=== PATIENT | male | born 1970 | race Caucasian/White ===

== ENCOUNTER 2017-12-25 09:09 | Emergency (ER) | payer BC, SELFPAY ==
[2017-12-25 09:48] LABS: UTC Influenza A Antigen Negative (Negative); UTC Influenza B Antigen Negative (Negative)
[2017-12-25 09:49] VITALS: BP 132/89; PULSE 74; RESP 17; TEMP 36.8; O2SAT 98; BMI 23.2
--- NOTE | 2017-12-25 09:55 | HMH.EDUTC ---
[facility] [place] Clinical Impression: Influenza-like illness, Exposure to influenza Disposition: Home, Self-Care Condition on Discharge: Good Instructions: DI for Influenza -- Adult Additional Instructions: * Start Tamiflu today if you are going to take it. Discussed risks, side effects, risk of allergic reaction, and possible benefits. We even discussed hallucinations and uncontrollable fevers. Still wants tamiflu. Encouraged to monitor closely. * Lots of rest * Increase fluids, water, gatorade, powerade, pedialyte if /toddler/child * Monitor Temp. Tylenol every 4 hours as needed no more then 5 times a day or 4000mg in 24 hours and/or ibuprofen every 6 hours as needed no more then 3200mg in 24 hours (as long as your primary care doctor has told you that it is ok to take both) for fever/aches/pain. ER if fever no less than 101 despite tylenol and Ibuprofen * OTC cold/flu/sinus medication is ok but pick one. Do not take multiple different ones as they have similar ingredients and you can overdose on cold medication. * You (or your child) are contagious until no fever, aches, chills x 24 hours without medication for symptoms. IMMEDIATELY for new or worsening symptoms, improvement followed by suddenly feeling worse OR no noticeable improvement over the next 48-72 hours. 911 for difficulty breathing Prescriptions: Oseltamivir Phosphate [Tamiflu 75mg Capsule] 75 mg PO BID #10 cap Forms: Work/School Release Time of Disposition: 09:58 Medical Decision Making Vital Signs: 12/25/17 09:49 Temperature 98.2 F Temperature Source Temporal Artery Scan Pulse Rate [Right Radial] 74 Respiratory Rate 17 Blood Pressure [Right Arm] 132/89 Blood Pressure Mean [Right Arm] 103 Blood Pressure Source [Right Arm] Automatic Cuff Blood Pressure Position [Right Arm] Sitting 02 Sat by Pulse Oximetry 98 Oxygen Delivery Method Room Air - Lab Data Lab results reviewed: Yes: I reviewed the patient's lab results. Lab Results 12/25/17 09:45: Influenza Type A Ag Negative, Influenza Type B Ag Negative - Greg Inquiry Pt receiving controlled substance: No [facility] [place] - General Stated complaint: flu like symptoms Time Seen by Provider: 12/25/17 09:21 Mode of Arrival: Family Vehicle Source of Information: Patient Limitations: No Limitations Description of Symptoms (Recalled from Triage Doc. by RN): flu like symptoms. HEENT Symptoms (Recalled from RN notes): Yes Resp Symptoms (Recalled from RN notes): Yes (flu symptoms) Skin Symptoms (Recalled from RN notes): No MS Symptoms (Recalled from RN notes): No Functional Status (Recalled from RN notes): na - History of Present Illness Provider Complaint: c/o I started feeling bad yesterday and I just have to know if this is the flu. I have been exposed multiple times at work. Body aches, chills, chest congestion. Started mild yesterday and progressed throughout the day. Sudafed this morning but right before arrival so not sure if it has helped. no fever. - Related Data Home Medications Medication Instructions Recorded Confirmed Aspirin 81 mg PO DAILY 12/25/17 12/25/17 Previous Rx's Medication Instructions Recorded Oseltamivir Phosphate [Tamiflu 75 mg PO BID #10 cap 12/25/17 75mg Capsule] Allergies Allergy/AdvReac Type Severity Reaction Status Date / Time Penicillins [PENICILLINS] Allergy Unknown Verified 12/25/17 09:52 vancomycin [VANCOMYCIN] Allergy Unknown Verified 12/25/17 09:52 - Worker's Comp Is this a Worker's Comp case?: No [facility] History I have reviewed the patient's past medical history: Yes (denies PMHx) Medical History: Denies:: Diabetes Mellitus Type 2, Hypertension Other Surgeries: No: No Previous Surgery - *Social History Smoking Status: Never smoker Alcohol Intake: never - Psychiatric History Expresses thoughts of harming self/others: None Suicide Plan Description: No Plan ROS Obtained: Yes Systems reviewed as appropriate & no jason
--- NOTE | 2017-12-25 09:58 | ED_ITS ---
[facility] [place]ression: Influenza-like illness, Exposure to influenza Disposition: Home, Self-Care Condition on Discharge: Good Instructions: DI for Influenza -- Adult Additional Instructions: * Start Tamiflu today if you are going to take it. Discussed risks, side effects , risk of allergic reaction, and possible benefits. We even discussed hallucinations and uncontrollable fevers. Still wants tamiflu. Encouraged to monitor closely. * Lots of rest * Increase fluids, water, gatorade, powerade, pedialyte if /toddler/child * Monitor Temp. Tylenol every 4 hours as needed no more then 5 times a day or 4000mg in 24 hours and/or ibuprofen every 6 hours as needed no more then 3200mg in 24 hours (as long as your primary care doctor has told you that it is ok to take both) for fever/aches/pain. ER if fever no less than 101 despite tylenol and Ibuprofen * OTC cold/flu/sinus medication is ok but pick one. Do not take multiple different ones as they have similar ingredients and you can overdose on cold medication. * You (or your child) are contagious until no fever, aches, chills x 24 hours without medication for symptoms. IMMEDIATELY for new or worsening symptoms, improvement followed by suddenly feeling worse OR no noticeable improvement over the next 48-72 hours. 911 for difficulty breathing Prescriptions: Oseltamivir Phosphate [Tamiflu 75mg Capsule] 75 mg PO BID #10 cap Forms: Work/School Release Time of Disposition: 09:58 Medical Decision Making Vital Signs: 12/25/17 09:49 Temperature 98.2 F Temperature Source Temporal Artery Scan Pulse Rate [Right Radial] 74 Respiratory Rate 17 Blood Pressure [Right Arm] 132/89 Blood Pressure Mean [Right Arm] 103 Blood Pressure Source [Right Arm] Automatic Cuff Blood Pressure Position [Right Arm] Sitting 02 Sat by Pulse Oximetry 98 Oxygen Delivery Method Room Air - Lab Data Lab results reviewed: Yes: I reviewed the patient's lab results. Lab Results 12/25/17 09:45: Influenza Type A Ag Negative, Influenza Type B Ag Negative - Greg Inquiry Pt receiving controlled substance: No [facility] [place] General Stated complaint: flu like symptoms Time Seen by Provider: 12/25/17 09:21 Mode of Arrival: Family Vehicle Source of Information: Patient Limitations: No Limitations Description of Symptoms (Recalled from Triage Doc. by RN): flu like symptoms. HEENT Symptoms (Recalled from RN notes): Yes Resp Symptoms (Recalled from RN notes): Yes (flu symptoms) Skin Symptoms (Recalled from RN notes): No MS Symptoms (Recalled from RN notes): No Functional Status (Recalled from RN notes): na - History of Present Illness Provider Complaint: c/o I started feeling bad yesterday and I just have to know if this is the flu. I have been exposed multiple times at work. Body aches , chills, chest congestion. Started mild yesterday and progressed throughout the day. Sudafed this morning but right before arrival so not sure if it has helped. no fever. - Related Data Home Medications Medication Instructions Recorded Confirmed Aspirin 81 mg PO DAILY 12/25/17 12/25/17 Previous Rx's Medication Instructions Recorded Oseltamivir Phosphate [Tamiflu 75 mg PO BID #10 cap 12/25/17 75mg Capsule] Allergies Allergy/AdvReac Type Severity Reaction Status Date / Time Penicillins [PENICILLINS] Allergy Unknown Verified
[2017-12-25 09:59] VITALS: BP 115/87; PULSE 82; RESP 18; TEMP 37; O2SAT 100
== END 2017-12-25 10:00 | disposition home or self-care (01) ==
PROVIDERS: Emergency Provider Nurse Practitioner Family; Family Provider Family Medicine
DX: J10.1 Influenza due to other identified influenza virus with other respiratory manifestations (principal)
CPT/HCPCS: 87804; 99201

== ENCOUNTER 2018-02-18 09:17 | Emergency (ER) | payer BC, SELFPAY ==
[2018-02-18 09:26] VITALS: BP 143/94; PULSE 75; RESP 18; TEMP 36.6; O2SAT 100; BMI 23.3
--- NOTE | 2018-02-18 09:37 | HMH.EDUTC ---
[facility] [place] Clinical Impression: Bronchitis Disposition: Home, Self-Care Condition on Discharge: Good Instructions: DI for Acute Bronchitis Prescriptions: Cefdinir [Omnicef 300mg Capsule] 300 mg PO BID #20 cap predniSONE [Prednisone 20mg Tab] 20 mg PO BID 5 Days #10 tab Referrals: John Villanueva MD [Primary Care Provider] - Time of Disposition: 09:45 Medical Decision Making - Medical Records Medical records reviewed: Yes: I reviewed the patient's medical records. - Greg Inquiry Pt receiving controlled substance: No Vital Signs: 02/18/18 09:26 Temperature 98 F Temperature Source Oral Pulse Rate [Right Radial] 75 Respiratory Rate 18 Blood Pressure [Right Arm] 143/94 Blood Pressure Mean [Right Arm] 110 02 Sat by Pulse Oximetry 100 Oxygen Delivery Method Room Air [facility] [place] - General Stated complaint: chest congestion Time Seen by Provider: 02/18/18 09:38 Mode of Arrival: Family Vehicle Source of Information: Patient Limitations: No Limitations Description of Symptoms (Recalled from Triage Doc. by RN): pt c/o cough and chest congestion for a few days. HEENT Symptoms (Recalled from RN notes): No Resp Symptoms (Recalled from RN notes): Yes (cough and chest congestion) Skin Symptoms (Recalled from RN notes): No MS Symptoms (Recalled from RN notes): No Functional Status (Recalled from RN notes): na - History of Present Illness Provider Complaint: Cough, chest congestion X 3-4 days. Cough productive of sputum, mostly brownish green and occasionally bloody. No vomiting or diarrhea. No fever. Denies ear pain. Some sinus pressure. Mild sore throat. Onset (ago): day(s) (4) Location: chest Relieving factors: none Exacerbating factors: none Associated symptoms: cough Treatments prior to arrival: none - Related Data Home Medications Medication Instructions Recorded Confirmed Aspirin 81 mg PO DAILY 12/25/17 02/18/18 Previous Rx's Medication Instructions Recorded Cefdinir [Omnicef 300mg Capsule] 300 mg PO BID #20 cap 02/18/18 predniSONE [Prednisone 20mg 20 mg PO BID 5 Days #10 tab 02/18/18 Tab] Allergies Allergy/AdvReac Type Severity Reaction Status Date / Time Penicillins [PENICILLINS] Allergy Unknown Verified 02/18/18 09:29 vancomycin [VANCOMYCIN] Allergy Unknown Verified 02/18/18 09:29 - Worker's Comp Is this a Worker's Comp case?: No [facility] History I have reviewed the patient's past medical history: Yes Medical History: Denies:: Cancer, Diabetes Mellitus Type 1, Diabetes Mellitus Type 2, Hypertension, MRSA Other Surgeries: No: No Previous Surgery Amputation: No Fractures: No - Social History Smoking Status: Never smoker Alcohol Intake: current Alcohol Intake Frequency:: holidays/special occasions only - Psychiatric History Expresses thoughts of harming self/others: None Suicide Plan Description: No Plan ROS Obtained: Yes All systems reviewed & no additional complaints - Respiratory Respiratory: Yes change in phlegm color, Yes chest congestion, Yes cough, Yes coughing up blood Physical Exam - General General appearance: alert, in no apparent distress - Head Head exam: atraumatic, normocephalic, normal inspection - Eye Eye exam: Present: normal appearance, PERRL, EOMI - ENT ENT exam: Present: normal exam, normal oropharynx, mucous membranes moist, TM's normal bilaterally, normal external ear exam - Neck Neck exam: Present: normal inspection, full ROM, trachea midline. Absent: meningismus, lymphadenopathy - Chest Chest inspection: Present: normal inspection, symmetric chest wall rise. Absent: tenderness - Respiratory Respiratory exam: Absent: respiratory distress - Expanded Respiratory Exam Location: Left: rhonchi, decreased breath sounds, Right: rhonchi, decreased breath sounds, Upper: decreased breath sounds, Lower: rhonchi, decreased breath sounds - Cardiovascular Cardiovascular exam: Present: regular rate, normal rh
--- NOTE | 2018-02-18 09:41 | ED_ITS ---
[facility] [place]: Bronch[place] Disposition: Home, Self-Care Condition on Discharge: Good Instructions: DI for Acute Bronchitis Prescriptions: Cefdinir [Omnicef 300mg Capsule] 300 mg PO BID #20 cap predniSONE [Prednisone 20mg Tab] 20 mg PO BID 5 Days #10 tab Referrals: John Villanueva MD [Primary Care Provider] - Time of Disposition: 09:45 Medical Decision Making - Medical Records Medical records reviewed: Yes: I reviewed the patient's medical records. - Greg Inquiry Pt receiving controlled substance: No Vital Signs: 02/18/18 09:26 Temperature 98 F Temperature Source Oral Pulse Rate [Right Radial] 75 Respiratory Rate 18 Blood Pressure [Right Arm] 143/94 Blood Pressure Mean [Right Arm] 110 02 Sat by Pulse Oximetry 100 Oxygen Delivery Method Room Air [facility] [place] - General Stated complaint: chest congestion Time Seen by Provider: 02/18/18 09:38 Mode of Arrival: Family Vehicle Source of Information: Patient Limitations: No Limitations Description of Symptoms (Recalled from Triage Doc. by RN): pt c/o cough and chest congestion for a few days. HEENT Symptoms (Recalled from RN notes): No Resp Symptoms (Recalled from RN notes): Yes (cough and chest congestion) Skin Symptoms (Recalled from RN notes): No MS Symptoms (Recalled from RN notes): No Functional Status (Recalled from RN notes): na - History of Present Illness Provider Complaint: Cough, chest congestion X 3-4 days. Cough productive of sputum, mostly brownish green and occasionally bloody. No vomiting or diarrhea. No fever. Denies ear pain. Some sinus pressure. Mild sore throat. Onset (ago): day(s) (4) Location: chest Relieving factors: none Exacerbating factors: none Associated symptoms: cough Treatments prior to arrival: none - Related Data Home Medications Medication Instructions Recorded Confirmed Aspirin 81 mg PO DAILY 12/25/17 02/18/18 Previous Rx's Medication Instructions Recorded Cefdinir [Omnicef 300mg Capsule] 300 mg PO BID #20 cap 02/18/18 predniSONE [Prednisone 20mg 20 mg PO BID 5 Days #10 tab 02/18/18 Tab] Allergies Allergy/AdvReac Type Severity Reaction Status Date / Time Penicillins [PENICILLINS] Allergy Unknown Verified 02/18/18 09:29 vancomycin [VANCOMYCIN] Allergy Unknown Verified 02/18/18 09:29 - Worker's Comp Is this a Worker's Comp case?: No [facility] History I have reviewed the patient's past medical history: Yes Medical History: Denies:: Cancer, Diabetes Mellitus Type 1, Diabetes Mellitus Type 2, Hypertension, MRSA Other Surgeries: No: No Previous Surgery Amputation: No Fractures: No - Social History Smoking Status: Never smoker Alcohol Intake: current Alcohol Intake Frequency:: holidays/special occasions only - Psychiatric History Expresses thoughts of harming self/others: None Suicide Plan Description: No Plan ROS Obtained: Yes All systems reviewed & no additional complaints - Respiratory Respiratory: Yes change in phlegm color, Yes chest congestion, Yes cough, Yes coughing up blood Physical Exam - General General appearance: alert, in no apparent distress - Head Head exam: atraumatic, normocephalic, normal inspection - Eye Eye exam: Present: normal appearance, PERRL, EOMI - ENT
[2018-02-18 09:48] VITALS: BP 137/82; PULSE 74; RESP 16; TEMP 36.8; O2SAT 100
== END 2018-02-18 09:49 | disposition home or self-care (01) ==
PROVIDERS: Emergency Provider Physician Assistant; Family Provider Family Medicine; PCP Family Medicine
DX: J20.9 Acute bronchitis, unspecified (principal)
CPT/HCPCS: 99201

== ENCOUNTER → 2020-02-06 15:04 | Outpatient (CLI) | payer BC, SELFPAY ==
[2020-02-14 10:04] LABS: Covid-19 Nasal PCR Sendout Lex NOT DETECTED
--- NOTE | 2020-02-14 10:38 | PC.NURSE ---
SPOKE WITH 'S OFFICE AND NOTIFIED THEM OF PATIENT'S RESULTS. SPOKE WITH PATIENT AND NOTIFIED HIM OF NEGATIVE RESULTS. RESULTS WILL BE FAXED TO [facility].
== END ==
PROVIDERS: Visit Provider Family Medicine
DX: R50.9 Fever, unspecified (principal); R05 Cough

== ENCOUNTER 2021-04-24 18:37 | Emergency (ER) | payer BC, SELFPAY ==
[2021-04-24 18:40] VITALS: BP 148/105; PULSE 77; RESP 20; TEMP 36.8; O2SAT 98; BMI 23.6
--- NOTE | 2021-04-24 19:01 | HMH.EDUTC ---
[facility] [place] Clinical Impression: Allergic reaction Qualifiers: Encounter type: initial encounter Qualified Code(s): T78.40XA - Allergy, unspecified, initial encounter Disposition: Home, Self-Care Condition on Discharge: Good Instructions: DI for Hives Additional Instructions: follow up with pcp for more testing benadryl as needed and directed if symptoms return be seen in ed Referrals: John Villauneva MD [Primary Care Provider] - Time of Disposition: 19:49 Medical Decision Making - Greg Inquiry Pt receiving controlled substance: No Vital Signs: 04/24/21 18:40 04/24/21 19:44 Temperature 98.2 F 98.2 F Temperature Source Temporal Artery Scan Pulse Rate 77 Pulse Rate [Right Brachial] 77 Respiratory Rate 20 20 Blood Pressure 148/105 H Blood Pressure [Right Arm] 148/105 H Blood Pressure Mean [Right Arm] 119 Blood Pressure Source [Right Arm] Automatic Cuff Blood Pressure Position [Right Arm] Sitting 02 Sat by Pulse Oximetry 98 Oxygen Delivery Method Room Air Orders (Tests/Meds): ED MEDICATIONS Generic Name Dose Route Start Last Admin Trade Name Freq PRN Reason Stop Dose Admin Sodium Chloride 8 ml 04/24/21 19:16 04/24/21 19:34 Sodium Chloride 0.9% 10ml Vial IV 05/24/21 19:15 8 ml NEEDED PRN Administration dilute pepcid Discontinued Medications Generic Name Dose Route Start Last Admin Trade Name Freq PRN Reason Stop Dose Admin Diphenhydramine HCl 12.5 mg 04/24/21 19:16 04/24/21 19:34 Diphenhydramine 50mg/Ml Vial IV 04/24/21 19:17 12.5 mg ONCE ONE Administration Famotidine 20 mg 04/24/21 19:16 04/24/21 19:34 Famotidine 20mg/2ml Vial IV 04/24/21 19:17 20 mg ONCE ONE Administration Methylprednisolone Sodium Succinate 125 mg 04/24/21 19:16 04/24/21 19:34 Methylprednisolone Sod Succ 125mg Vial IV 04/24/21 19:17 125 mg ONCE ONE Administration [facility] [place] HPI - General Chief complaint: Urgent [facility] Center Stated complaint: possible allergic reaction Time Seen by Provider: 04/24/21 19:05 Mode of Arrival: Ambulatory Source of Information: Patient Limitations: No Limitations Description of Symptoms (Recalled from Triage Doc. by RN): PATIENT C/O RED, ITCHY RASH TO BILATERAL ARMS, ABDOMEN AND BACK. STATES IT STARTED AFTER HE GOT OUT OF THE SHOWER TODAY, BUT IT HAS HAPPENED A COUPLE OF TIMES IN THE PAST WEEK WELL HEENT Symptoms (Recalled from RN notes): No Resp Symptoms (Recalled from RN notes): No Skin Symptoms (Recalled from RN notes): Yes MS Symptoms (Recalled from RN notes): No Functional Status (Recalled from RN notes): WNL - History of Present Illness Provider Complaint: 50 yr old male presents for rash hive rash to abida arms,abd and back that started one hour ago. pt states he took a 1/2 a benadryl about 1 hour ago. Pt states he does not know what he was allergic to but did eat out earlier. pt reports a peanut allergy. - Related Data Allergies Allergy/AdvReac Type Severity Reaction Status Date / Time Penicillins [PENICILLINS] Allergy Unknown Verified 02/03/20 09:30 vancomycin [VANCOMYCIN] Allergy Unknown Verified 02/03/20 09:30 - Worker's Comp Is this a Worker's Comp case?: No [facility] History - Hepatitis A Screen Drug use history?: No High risk sexual behaviors?: No History of sexually transmitted infection?: No Currently employed?: No Childcare worker?: No Do you have indoor plumbing?: Yes Do you have electricity?: Yes Attestation statement:: This patient has been screened for Hepatitis A risk factors. I have reviewed the patient's past medical history: Yes Medical History: Denies:: Cancer, Diabetes Mellitus Type 1, Diabetes Mellitus Type 2, Hypertension, MRSA Other Surgeries: No: No Previous Surgery Amputation: No Fractures: No - Social History Smoking Status: Never smoker Alcohol Intake: current Alcohol Intake Frequency:: holidays/special occasions only Occupational Status: employed ROS Obtain
[2021-04-24 19:44] VITALS: BP 148/105; PULSE 77; RESP 20; TEMP 36.8; O2SAT 98
== END 2021-04-24 19:50 | disposition home or self-care (01) ==
PROVIDERS: Emergency Provider Nurse Practitioner Family; PCP Family Medicine
DX: T78.40XA Allergy, unspecified, initial encounter (principal); R03.0 Elevated blood-pressure reading, without diagnosis of hypertension; Z88.1 Allergy status to other antibiotic agents; Z88.0 Allergy status to penicillin
CPT/HCPCS: 96374; 96375; 99202; G0463